=== PATIENT | male | born 1930 | race Caucasian/White ===

== ENCOUNTER → 2016-05-20 | Outpatient (CLI) | payer OTHER ==
[2016-05-20 08:42] LABS: Basophils # (auto) 0 uL; Basophils % (auto) 0.4 % (0.0-2.0); Eosinophils # (auto) 0.2 uL; Eosinophils % (auto) 2.8 % (0.0-7.0); Hematocrit 47.2 % (41.0-53.0); Hemoglobin 15.4 g/dL (13.5-17.5); Lymphocytes # (auto) 1.9 uL; Lymphocytes % (auto) 31.8 % (10.0-50.0); Mean Corpuscular Hemoglobin 31.8 pg (28.0-32.0); Mean Corpuscular Hgb Conc. 32.6 g/dL (32.0-36.0); Mean Corpuscular Volume 97.7 fL (80.0-100.0); Mean Platelet Volume 9.2 fL (7.4-10.4); Monocytes # (auto) 0.5 uL; Neutrophils # (auto) 3.4 uL; Platelet Count (auto) 156 10^3/uL (140-450)
[2016-05-20 08:53] LABS: Urine Bilirubin Negative (Negative); Urine Blood Negative /uL (Negative); Urine Color Yellow (Yellow); Urine Glucose Normal (Normal); Urine Ketone Negative (Negative); Urine Nitrite Negative (Negative); Urine RBC <1 /hpf (0 - 3)
[2016-05-20 09:16] LABS: Albumin 4.4 g/dL (3.4-5.0); BUN/Creatinine Ratio 13.1; Bilirubin, Total 1.8 mg/dL (0.2-1.0); Calcium 8.9 mg/dL (8.5-10.1); Potassium 4.3 mmol/L (3.5-5.1); Total Protein 7.6 g/dL (6.4-8.2)
== END | disposition home or self-care (01) ==
LOC: LAB 07:25
DX: I10 Essential (primary) hypertension (principal); R73.09 Other abnormal glucose
CPT/HCPCS: 36415; 80053; 80061; 81001; 83036; 84443; 85025; 85049

== ENCOUNTER → 2016-09-30 | Outpatient (CLI) | payer OTHER ==
[2016-09-30 08:46] LABS: Urine RBC None Seen /hpf (0 - 3)
[2016-09-30 08:55] LABS: Basophils # (auto) 0 uL; Basophils % (auto) 0.4 % (0.0-2.0); Eosinophils # (auto) 0.1 uL; Eosinophils % (auto) 1.9 % (0.0-7.0); Hematocrit 47.8 % (41.0-53.0); Hemoglobin 15.8 g/dL (13.5-17.5); Lymphocytes # (auto) 1.7 uL; Lymphocytes % (auto) 30.7 % (10.0-50.0); Mean Corpuscular Hemoglobin 32.6 pg (28.0-32.0); Mean Corpuscular Hgb Conc. 33.2 g/dL (32.0-36.0); Mean Corpuscular Volume 98.3 fL (80.0-100.0); Mean Platelet Volume 8.7 fL (7.4-10.4); Monocytes # (auto) 0.4 uL; Monocytes % (auto) 8.4 % (0.0-12.0); Neutrophils # (auto) 3.1 uL; Neutrophils % (auto) 58.6 % (37.0-80.0); Platelet Count (auto) 170 10^3/uL (140-450); Red Cell Distribution Width 13.7 % (11.6-16.0); White Blood Cell 5.4 10^3/uL (4.4-10.8)
[2016-09-30 09:14] LABS: Albumin 4.3 g/dL (3.4-5.0); Calcium 9.1 mg/dL (8.5-10.1); Potassium 4.5 mmol/L (3.5-5.1)
[2016-09-30 09:18] LABS: Bilirubin, Total 1.9 mg/dL (0.2-1.0); Total Protein 7.6 g/dL (6.4-8.2)
[2016-09-30 15:29] LABS: Urine Bilirubin Negative (Negative); Urine Blood Negative /uL (Negative); Urine Color Yellow (Yellow); Urine Glucose Normal (Normal); Urine Ketone Negative (Negative); Urine Mucus FEW (None Seen); Urine Nitrite Negative (Negative); Urine Squamous Epithelial Cell FEW /hpf (<5); Urine Urobilinogen Normal (Negative); Urine pH 5.5 (5.0-8.0)
[2016-09-30 19:30] LABS: BUN/Creatinine Ratio 12.6
== END | disposition home or self-care (01) ==
LOC: LAB 08:07
DX: R73.09 Other abnormal glucose (principal); I10 Essential (primary) hypertension
CPT/HCPCS: 36415; 80053; 80061; 81001; 83036; 84443; 85025

== ENCOUNTER 2016-11-14 09:15 | Inpatient (IN) | payer OTHER ==
[~2016-11-14] VITALS: Ht 182.9 cm; Wt 80.1 kg
[2016-11-14 10:20] LABS: Basophils # (auto) 0 uL; Basophils % (auto) 0.2 % (0.0-2.0); CONDITION Y; Eosinophils # (auto) 0.1 uL; Eosinophils % (auto) 0.9 % (0.0-7.0); Hematocrit 46.3 % (41.0-53.0); Hemoglobin 15.8 g/dL (13.5-17.5); Lymphocytes # (auto) 1.3 uL; Mean Corpuscular Hemoglobin 33.3 pg (28.0-32.0); Mean Corpuscular Hgb Conc. 34.2 g/dL (32.0-36.0); Mean Corpuscular Volume 97.5 fL (80.0-100.0); Mean Platelet Volume 8.6 fL (7.4-10.4); Monocytes # (auto) 0.6 uL; Monocytes % (auto) 7.9 % (0.0-12.0); Neutrophils # (auto) 5.1 uL; Platelet Count (auto) 179 10^3/uL (140-450); Red Cell Distribution Width 13.6 % (11.6-16.0)
[2016-11-14 10:39] LABS: Albumin 4.1 g/dL (3.4-5.0); Anion Gap 8 (5-15); Blood Urea Nitrogen 15 mg/dL (7-18); Calcium 8.5 mg/dL (8.5-10.1); Carbon Dioxide 25 mmol/L (21-32); Chloride 108 mmol/L (98-107); Glucose 111 mg/dL (74-106); Sodium 141 mmol/L (136-145)
[2016-11-14 10:41] LABS: BUN/Creatinine Ratio 13.6; GFR African American 81 mL/min; GFR Non-African American 67 mL/min
[2016-11-14 10:46] LABS: Alkaline Phosphatase 54 U/L (45-117); Total Protein 7.4 g/dL (6.4-8.2)
[2016-11-14 10:48] LABS: Aspartate Aminotransferase 18 U/L (15-37)
[2016-11-14 11:02] LABS: Urine Bilirubin Negative (Negative); Urine Blood Negative /uL (Negative); Urine Color Yellow (Yellow); Urine Glucose Normal (Normal); Urine Ketone Negative (Negative); Urine Nitrite Negative (Negative); Urine RBC 1 /hpf (0 - 3); Urine Squamous Epithelial Cell FEW /hpf (<5); Urine Urobilinogen Normal (Negative)
[2016-11-14] MEDS ORDERED: SODIUM CHLORIDE 0.9% 1,000 ML IV ONE (11:30)
[2016-11-14] MEDS ORDERED: cloNIDine HCL 0.1 MG TAB PO ONE (11:30)
[2016-11-14] MEDS ORDERED: TEMAZEPAM 15 MG CAP PO PRN (12:45)
[2016-11-14] MEDS ORDERED: HYDROcodone-ACET 5/325MG TAB PO PRN (12:45)
[2016-11-14] MEDS ORDERED: MORPHINE SULF INJ 2 MG/ML SYRINGE 1ML IV PRN ×2 (12:45)
[2016-11-14] MEDS ORDERED: ENOXAPARIN SOD 40 MG/0.4 ML SYRINGE SC ONE (12:45)
[2016-11-14] MEDS ORDERED: NITROGLYCERIN 0.4 MG SL TAB SL PRN (12:45)
[2016-11-14] MEDS ORDERED: ACETAMINOPHEN 500 MG TAB PO PRN (12:45)
[2016-11-14] MEDS ORDERED: ONDANSETRON HCL 4 MG/2 ML VIAL IV PRN (12:45)
[2016-11-14] MEDS ORDERED: LORazepam 0.5 MG TAB PO PRN (12:45)
[2016-11-14] MEDS ORDERED: DILTIAZEM HCL 25 MG/5 ML VIAL IV ONE (13:00)
[2016-11-14] MEDS ORDERED: ASPirin 81 mg TAB PO ONE (13:00)
[2016-11-14] MEDS ORDERED: DOCU100C PO (13:57)
[2016-11-14] MEDS ORDERED: MET50T PO (13:57)
[2016-11-14] MEDS ORDERED: TAMS0.4C36 PO (13:57)
[2016-11-14] MEDS ORDERED: LISI40TA PO (13:57)
[2016-11-14] MEDS ORDERED: SIMV-13 PO (13:57)
[2016-11-14] MEDS ORDERED: CETI10TA93 PO (13:57)
[2016-11-14] MEDS ORDERED: LATA0.0015 EACHEYE (13:57)
[2016-11-14 15:41] LABS: Temperature: 22.9 C (20.0-25.0)
[2016-11-14 15:42] LABS: INR 1.05 (0.9-1.15); Prothrombin Time 11.4 sec (9.37-12.3)
[2016-11-14 16:13] LABS: Cholesterol 111 mg/dL (< 200); HDL Cholesterol 42 mg/dL (40-59); LDL Cholesterol 65 mg/dL (< 100); Triglycerides 109 mg/dL (< 150)
[2016-11-14] MEDS: TAMSULOSIN HYDROCHLORIDE 0.4 MG CAP PO SCH (18:08)
[2016-11-14 20:00] VITALS: BP 155/107
[2016-11-14] MEDS ORDERED: IOHEXOL 350 MG/ML 100ML IJ ONE (21:23)
[2016-11-14] MEDS ORDERED: ATORVASTATIN 20 MG TAB PO SCH (22:00)
[2016-11-14] MEDS: DOXYCYCLINE 100 MG TAB/CAP PO SCH (22:03)
[2016-11-14] MEDS: METOPROLOL SUCCINATE XL 50 MG TAB PO SCH (22:04)
[2016-11-14] MEDS: ATORVASTATIN 20 MG TAB PO SCH (22:04)
[2016-11-14] MEDS: LATANOPROST 0.005 % OPTH(EYE) SOL 2.5ML EACHEYE SCH (22:05)
[2016-11-15] MEDS ORDERED: ENOXAPARIN SOD 100 MG/1 ML SYRINGE SC SCH (00:15)
[2016-11-15 05:00] VITALS: BP 148/94
[2016-11-15 06:00] LABS: Basophils # (auto) 0 uL; Basophils % (auto) 0.3 % (0.0-2.0); CONDITION Y; Eosinophils # (auto) 0.1 uL; Eosinophils % (auto) 1.2 % (0.0-7.0); Hematocrit 41.8 % (41.0-53.0); Hemoglobin 14.1 g/dL (13.5-17.5); Lymphocytes # (auto) 1.3 uL; Lymphocytes % (auto) 21.6 % (10.0-50.0); Mean Corpuscular Hemoglobin 33.1 pg (28.0-32.0); Mean Corpuscular Hgb Conc. 33.7 g/dL (32.0-36.0); Mean Corpuscular Volume 98.2 fL (80.0-100.0); Mean Platelet Volume 8.9 fL (7.4-10.4); Monocytes # (auto) 0.5 uL; Monocytes % (auto) 8.1 % (0.0-12.0); Neutrophils # (auto) 4.1 uL; Neutrophils % (auto) 68.8 % (37.0-80.0); Platelet Count (auto) 149 10^3/uL (140-450); Red Cell Distribution Width 13.7 % (11.6-16.0)
[2016-11-15 06:12] LABS: INR 1.03 (0.9-1.15); Partial Thromboplastin Time 33.8 sec (22.64-33.71); Prothrombin Time 11.2 sec (9.37-12.3)
[2016-11-15 06:41] LABS: Potassium 4.3 mmol/L (3.5-5.1)
[2016-11-15 06:45] LABS: Albumin 3.6 g/dL (3.4-5.0); BUN/Creatinine Ratio 11.6; Calcium 8.5 mg/dL (8.5-10.1)
[2016-11-15 06:57] LABS: Bilirubin, Total 2.5 mg/dL (0.2-1.0); Total Protein 6.3 g/dL (6.4-8.2)
[2016-11-15 09:36] VITALS: BP 142/90
[2016-11-15] MEDS ORDERED: ENOXAPARIN SOD 80 MG/0.8ML SYRINGE SC SCH (10:00)
[2016-11-15] MEDS ORDERED: ENOXAPARIN SOD 40 MG/0.4 ML SYRINGE SC SCH (10:00)
[2016-11-15] MEDS: DOXYCYCLINE 100 MG TAB/CAP PO SCH ×2 (10:02→22:20)
[2016-11-15] MEDS: DOCUSATE SOD 100 MG CAP PO SCH (10:03)
[2016-11-15] MEDS: ASPirin 81 mg TAB PO SCH (10:03)
[2016-11-15 13:00] VITALS: BP 140/64
[2016-11-15 17:18] VITALS: BP 148/90
[2016-11-15] MEDS: TAMSULOSIN HYDROCHLORIDE 0.4 MG CAP PO SCH (17:44)
[2016-11-15 20:00] VITALS: BP 116/74
[2016-11-15] MEDS ORDERED: CYANOCOBALAMIN (B-12) 1000 MCG/1 ML VIAL IM ONE (20:30)
[2016-11-15 22:00] VITALS: BP 116/74
[2016-11-15] MEDS: METOPROLOL SUCCINATE XL 50 MG TAB PO SCH (22:21)
[2016-11-15] MEDS: APIXABAN 5 MG TAB PO SCH (22:21)
[2016-11-15] MEDS: ATORVASTATIN 20 MG TAB PO SCH (22:21)
[2016-11-15] MEDS: LATANOPROST 0.005 % OPTH(EYE) SOL 2.5ML EACHEYE SCH (22:22)
[2016-11-16 08:59] VITALS: BP 136/90
[2016-11-16] MEDS: DOCUSATE SOD 100 MG CAP PO SCH (09:57)
[2016-11-16] MEDS: DOXYCYCLINE 100 MG TAB/CAP PO SCH (09:57)
[2016-11-16] MEDS: CYANOCOBALAMIN 500 MCG TAB PO SCH (09:57)
[2016-11-16] MEDS: ASPirin 81 mg TAB PO SCH (09:57)
[2016-11-16] MEDS: APIXABAN 5 MG TAB PO SCH ×2 (09:57→22:51)
[2016-11-16 17:00] VITALS: BP 151/92
[2016-11-16] MEDS ORDERED: METOPROLOL TARTRATE 50 MG TAB PO ONE (17:15)
[2016-11-16] MEDS: TAMSULOSIN HYDROCHLORIDE 0.4 MG CAP PO SCH (17:37)
[2016-11-16 20:00] VITALS: BP 126/76
[2016-11-16 21:07] VITALS: BP 127/76
[2016-11-16] MEDS: METOPROLOL TARTRATE 50 MG TAB PO SCH (22:51)
[2016-11-16] MEDS: ATORVASTATIN 20 MG TAB PO SCH (22:51)
[2016-11-16] MEDS: LATANOPROST 0.005 % OPTH(EYE) SOL 2.5ML EACHEYE SCH (22:52)
[2016-11-17 05:00] VITALS: BP 118/78
[2016-11-17 06:20] LABS: Basophils # (auto) 0 uL; Basophils % (auto) 0.2 % (0.0-2.0); CONDITION Y; Eosinophils # (auto) 0.1 uL; Eosinophils % (auto) 1.6 % (0.0-7.0); Hematocrit 43.7 % (41.0-53.0); Hemoglobin 14.8 g/dL (13.5-17.5); Lymphocytes # (auto) 1.6 uL; Lymphocytes % (auto) 27.4 % (10.0-50.0); Mean Corpuscular Hemoglobin 33.1 pg (28.0-32.0); Mean Corpuscular Hgb Conc. 33.8 g/dL (32.0-36.0); Mean Corpuscular Volume 98.1 fL (80.0-100.0); Mean Platelet Volume 9.8 fL (7.4-10.4); Monocytes # (auto) 0.6 uL; Monocytes % (auto) 9.6 % (0.0-12.0); Neutrophils # (auto) 3.7 uL; Neutrophils % (auto) 61.2 % (37.0-80.0); Platelet Count (auto) 164 10^3/uL (140-450); Red Cell Distribution Width 13.8 % (11.6-16.0)
[2016-11-17 06:51] LABS: BUN/Creatinine Ratio 19.4; Calcium 8.8 mg/dL (8.5-10.1); Potassium 4.3 mmol/L (3.5-5.1)
[2016-11-17] MEDS: DOCUSATE SOD 100 MG CAP PO SCH (09:14)
[2016-11-17] MEDS: CYANOCOBALAMIN 500 MCG TAB PO SCH (09:14)
[2016-11-17] MEDS: APIXABAN 5 MG TAB PO SCH ×2 (09:15→22:27)
[2016-11-17] MEDS: METOPROLOL TARTRATE 50 MG TAB PO SCH ×2 (09:15→22:28)
[2016-11-17 10:00] VITALS: BP_SYST 131; BP_SYST 145; BP_SYST 154; BP_DIAS 104; BP_DIAS 83; BP_DIAS 96
[2016-11-17] MEDS: TAMSULOSIN HYDROCHLORIDE 0.4 MG CAP PO SCH (17:18)
[2016-11-17 20:00] VITALS: BP 135/76
[2016-11-17] MEDS: ATORVASTATIN 20 MG TAB PO SCH (22:27)
[2016-11-17] MEDS: LATANOPROST 0.005 % OPTH(EYE) SOL 2.5ML EACHEYE SCH (22:28)
[2016-11-17 22:38] VITALS: BP 135/76
[2016-11-18 05:38] VITALS: BP 135/98
[2016-11-18 09:00] VITALS: BP 139/75
[2016-11-18] MEDS: DOCUSATE SOD 100 MG CAP PO SCH (10:10)
[2016-11-18] MEDS: APIXABAN 5 MG TAB PO SCH (10:10)
[2016-11-18] MEDS: METOPROLOL TARTRATE 50 MG TAB PO SCH (10:15)
[2016-11-18] MEDS: CYANOCOBALAMIN 500 MCG TAB PO SCH (10:15)
[2016-11-18 13:00] VITALS: BP_SYST 122; BP_SYST 143; BP_SYST 151; BP_DIAS 102; BP_DIAS 86; BP_DIAS 98
[2016-11-18] MEDS ORDERED: MET50T PO (14:53)
[2016-11-18] MEDS ORDERED: CYAN500T2 PO (14:55)
[2016-11-18 15:29] VITALS: BP 139/75
[2016-11-18 17:00] VITALS: BP 140/76
[2016-11-19 07:06] LABS: Prostate Specific Antigen 0.8 ng/mL (0.0-4.0)
[2016-11-19 13:11] LABS: PSA Free 0.31 ng/mL
[2016-11-22] MEDS ORDERED: APIXABAN 5 MG TAB PO SCH (22:00)
== END 2016-11-18 17:17 | disposition home or self-care (01) | DRG 175 ==
LOC: ER 09:15 → TELE 09:16 → TELE-WESTW 19:45
PROVIDERS: ADMIT Internal Medicine; ATTEND Internal Medicine
DX: I26.99 Other pulmonary embolism without acute cor pulmonale (principal); G93.41 Metabolic encephalopathy; I50.33 Acute on chronic diastolic (congestive) heart failure; I27.82 Chronic pulmonary embolism; E78.00 Pure hypercholesterolemia, unspecified; E78.5 Hyperlipidemia, unspecified; I48.91 Unspecified atrial fibrillation; J32.3 Chronic sphenoidal sinusitis; F02.80 Dementia in other diseases classified elsewhere, unspecified severity, without behavioral disturbance, psychotic disturbance, mood disturbance, and anxiety; G30.9 Alzheimer's disease, unspecified; M51.36 Other intervertebral disc degeneration, lumbar region; I11.0 Hypertensive heart disease with heart failure; I49.5 Sick sinus syndrome; I70.90 Unspecified atherosclerosis; N40.0 Benign prostatic hyperplasia without lower urinary tract symptoms; Z82.49 Family history of ischemic heart disease and other diseases of the circulatory system; Z86.73 Personal history of transient ischemic attack (TIA), and cerebral infarction without residual deficits; Z91.81 History of falling; Z90.49 Acquired absence of other specified parts of digestive tract; Z71.89 Other specified counseling
CPT/HCPCS: 36415; 70450; 71020; 71275; 72192; 73502; 80048; 80053; 80061; 81001; 82378; 82550; 82607; 82746; 84154; 84443; 84484; 85025; 85379; 85610; 85652; 85730; 86141; 93005; 93306; 93970; 95819; 96361; 96372; 96374; J2405

== ENCOUNTER → 2017-04-30 | Outpatient (CLI) | payer OTHER ==
[~2017-04-30] MED LIST: CETI10TA93 PO; CYAN500T2 PO; DOCU100C PO; LATA0.0015 EACHEYE; LISI40TA PO; MET50T PO; SIMV-13 PO; TAMS0.4C36 PO
[2017-04-30 08:57] LABS: Basophils # (auto) 0 uL; Basophils % (auto) 0.7 % (0.0-2.0); Eosinophils # (auto) 0.2 uL; Hematocrit 44.2 % (41.0-53.0); Hemoglobin 15.1 g/dL (13.5-17.5); Lymphocytes # (auto) 1.4 uL; Lymphocytes % (auto) 27.2 % (10.0-50.0); Mean Corpuscular Hemoglobin 33.1 pg (28.0-32.0); Mean Corpuscular Hgb Conc. 34.2 g/dL (32.0-36.0); Mean Corpuscular Volume 96.9 fL (80.0-100.0); Monocytes # (auto) 0.5 uL; Monocytes % (auto) 9.5 % (0.0-12.0); Neutrophils # (auto) 2.9 uL; Neutrophils % (auto) 57.6 % (37.0-80.0); Platelet Count (auto) 152 10^3/uL (140-450); Red Blood Cells 4.57 10^6/uL (4.5-5.90); Red Cell Distribution Width 14.2 % (11.8-14.3)
[2017-04-30 12:32] LABS: Albumin 4.2 g/dL (3.4-5.0); BUN/Creatinine Ratio 10.6; Calcium 9.1 mg/dL (8.5-10.1); Potassium 4.4 mmol/L (3.5-5.1); Total Protein 7.6 g/dL (6.4-8.2)
== END | disposition home or self-care (01) ==
LOC: LAB 08:10
PROVIDERS: ATTEND Internal Medicine
DX: I10 Essential (primary) hypertension (principal); N40.0 Benign prostatic hyperplasia without lower urinary tract symptoms; E78.5 Hyperlipidemia, unspecified
CPT/HCPCS: 36415; 80053; 80061; 84153; 84443; 85025

== ENCOUNTER 2017-09-29 07:07 | Day surgery (SDC) | payer OTHER ==
[2017-09-26 11:03] LABS: Basophils # (auto) 0 uL; Basophils % (auto) 0.5 % (0.0-2.0); Eosinophils # (auto) 0.1 uL; Eosinophils % (auto) 1.3 % (0.0-7.0); Hematocrit 45.4 % (41.0-53.0); Hemoglobin 15.4 g/dL (13.5-17.5); Lymphocytes # (auto) 1.3 uL; Lymphocytes % (auto) 26.6 % (10.0-50.0); Mean Corpuscular Hemoglobin 33.1 pg (28.0-32.0); Mean Corpuscular Volume 97.4 fL (80.0-100.0); Monocytes # (auto) 0.4 uL; Monocytes % (auto) 8.2 % (0.0-12.0); Neutrophils # (auto) 3.2 uL; Neutrophils % (auto) 63.4 % (37.0-80.0); Platelet Count (auto) 155 10^3/uL (140-450); Red Blood Cells 4.66 10^6/uL (4.5-5.90); Red Cell Distribution Width 13.8 % (11.8-14.3)
[2017-09-26 11:15] LABS: INR 0.99 (0.9-1.15); Prothrombin Time 10.6 sec (9.27-12.13)
[2017-09-26 11:27] LABS: BUN/Creatinine Ratio 13.4; Bilirubin, Total 2.2 mg/dL (0.2-1.0); Calcium 8.9 mg/dL (8.5-10.1); Potassium 4.6 mmol/L (3.5-5.1); Total Protein 7.5 g/dL (6.4-8.2)
[~2017-09-29] VITALS: Ht 182.9 cm; Wt 73.5 kg
[~2017-09-29 07:07] MED LIST changes: +APIX5TAB OR; -DOCU100C PO; -LATA0.0015 EACHEYE
[2017-09-29] MEDS ORDERED: LIDOCAINE 2% JELLY 11ml (GLYDO) ONE (07:10)
[2017-09-29] MEDS ORDERED: MEPERIDINE HCL (50 MG/ML) 1 ML VIAL ONE (08:43)
[2017-09-29] MEDS ORDERED: fentaNYL CITRATE 100 MCG/2 ML VL ONE (08:43)
[2017-09-29] MEDS ORDERED: MIDAZOLAM HCL 1MG/1ML-2 ML VIAL ONE (08:43)
[2017-09-29] MEDS ORDERED: DEXAMETHASONE SOD PHOS 10MG/1ML VIAL INJ ONE (08:58)
[2017-09-29] MEDS ORDERED: PROPOFOL 10 MG/ML 20 ML IV ONE (08:58)
[2017-09-29] MEDS ORDERED: MORPHINE SULFATE 8mg/ml INJ SDV IV PRN (10:00)
[2017-09-29] MEDS ORDERED: ONDANSETRON HCL 4 MG/2 ML VIAL IV ONE (10:00)
[2017-09-29] MEDS ORDERED: MORPHINE SULFATE 8mg/ml INJ SDV IV ONE (10:00)
[2017-09-29] MEDS ORDERED: MIDAZOLAM HCL 1MG/1ML-2 ML VIAL IV PRN (10:00)
[2017-09-29] MEDS ORDERED: KETOROLAC TROMETH 30 MG/ML 1ML VIAL IV ONE (10:00)
[2017-09-29] MEDS ORDERED: ePHEDrine SULFATE 50 MG/ML AMP IV PRN (10:00)
[2017-09-29] MEDS ORDERED: LABETALOL HCL 5 MG/ML 4ML SYRINGE IV PRN (10:00)
[2017-09-29 12:12] VITALS: BP 131/102
== END 2017-09-29 12:30 | disposition home or self-care (01) ==
LOC: SUR 07:07
PROVIDERS: ATTEND Urology
DX: N40.1 Benign prostatic hyperplasia with lower urinary tract symptoms (principal); I10 Essential (primary) hypertension; I48.91 Unspecified atrial fibrillation; E78.00 Pure hypercholesterolemia, unspecified; I25.10 Atherosclerotic heart disease of native coronary artery without angina pectoris; Z86.73 Personal history of transient ischemic attack (TIA), and cerebral infarction without residual deficits; Z79.891 Long term (current) use of opiate analgesic; Z79.899 Other long term (current) drug therapy; Z86.711 Personal history of pulmonary embolism
CPT/HCPCS: 36415; 52601; 80053; 85025; 85610; 85730; 88305; J1100; J2175; J2250; J2704; J3010

== ENCOUNTER 2017-09-30 04:22 | Emergency (ER) | payer OTHER ==
[~2017-09-30] VITALS: Ht 182.9 cm; Wt 65.8 kg
[2017-09-30] MEDS ORDERED: LABETALOL HCL 5 MG/ML ML 20ML VIAL IV ONE (07:15)
[2017-09-30 07:21] LABS: Urine Bacteria NONE SEEN /hpf (None Seen); Urine Blood 2+ /uL (Negative); Urine Specific Gravity 1.027 (1.001-1.035); Urine WBC 96 /hpf (0 - 3)
[2017-09-30 07:29] LABS: Basophils # (auto) 0.1 uL; Basophils % (auto) 0.6 % (0.0-2.0); Eosinophils # (auto) 0 uL; Eosinophils % (auto) 0.1 % (0.0-7.0); Hematocrit 41.7 % (41.0-53.0); Hemoglobin 14.2 g/dL (13.5-17.5); Lymphocytes # (auto) 1.1 uL; Lymphocytes % (auto) 12.9 % (10.0-50.0); Mean Corpuscular Hemoglobin 33.3 pg (28.0-32.0); Mean Corpuscular Hgb Conc. 33.9 g/dL (32.0-36.0); Monocytes # (auto) 0.8 uL; Monocytes % (auto) 9.4 % (0.0-12.0); Neutrophils # (auto) 6.6 uL; Platelet Count (auto) 141 10^3/uL (140-450); Red Blood Cells 4.26 10^6/uL (4.5-5.90); Red Cell Distribution Width 13.6 % (11.8-14.3); White Blood Cell 8.6 10^3/uL (4.4-10.8)
[2017-09-30 07:42] LABS: Partial Thromboplastin Time 29.4 sec (23.78-33.04); Prothrombin Time 10.7 sec (9.27-12.13)
[2017-09-30 07:56] LABS: Alanine Aminotransferase 14 U/L (16-61); Albumin 3.7 g/dL (3.4-5.0); Alkaline Phosphatase 57 U/L (45-117); Anion Gap 8 (5-15); Aspartate Aminotransferase 13 U/L (15-37); BUN/Creatinine Ratio 19.3; Bilirubin, Total 1.9 mg/dL (0.2-1.0); Blood Urea Nitrogen 21 mg/dL (7-18); Calcium 8.6 mg/dL (8.5-10.1); Carbon Dioxide 27 mmol/L (21-32); Chloride 107 mmol/L (98-107); GFR African American 82 mL/min; GFR Non-African American 68 mL/min; Glucose 128 mg/dL (74-106); Potassium 4.6 mmol/L (3.5-5.1); Sodium 142 mmol/L (136-145); Total Protein 7.2 g/dL (6.4-8.2)
[2017-09-30 07:58] VITALS: BP 147/91
[2017-09-30] MEDS ORDERED: cefTRIAXone 1GM/10ml IVPUSH 10 ML IV ONE (08:30)
== END 2017-09-30 09:51 | disposition home or self-care (01) ==
LOC: EDBD 04:22 → ER 04:33
DX: N40.0 Benign prostatic hyperplasia without lower urinary tract symptoms (principal); N39.0 Urinary tract infection, site not specified; I10 Essential (primary) hypertension; E78.5 Hyperlipidemia, unspecified; Z90.49 Acquired absence of other specified parts of digestive tract
CPT/HCPCS: 36415; 74176; 80053; 81001; 84484; 85025; 85610; 85730; 96374; 96375; 99285; J7030